=== PATIENT | male | born 1975 | race Caucasian/White ===

== ENCOUNTER 2019-01-03 23:50 | Emergency (ER) | payer SELFPAY ==
[~2019-01-03] VITALS: Ht 167.6 cm; Wt 120.0 kg
[2019-01-04 00:26] LABS: HEMATOCRIT 38.1 % (39.0-50.0); HEMOGLOBIN 12.5 g/dl (14.0-18.0); IMMATURE GRANULOCYTES 1.7 % (0.0-5.0); MEAN CELL VOLUME 90.9 fL CALC (80.0-100.0); MEAN CORPUSCULAR HGB 29.8 pG CALC (26.0-32.0); MEAN CORPUSCULAR HGB CONC 32.8 g/L CALC (32.0-36.0); NEUT# 5.19 thou/uL (1.82-7.42); RED BLOOD COUNT 4.19 mill/uL (4.70-6.10); RED CELL DISTRI WIDTH 13.2 % (11.5-15.5)
[2019-01-04 00:47] LABS: ALBUMIN 3.8 g/dL (3.2-5.0); ALKALINE PHOSPHATASE 77 u/l (38-126); ANION GAP 10 (6-22 (CALC)); BILIRUBIN, TOTAL 0.4 mg/dL (0.0-1.4); BUN 21 mg/dL (9-20); BUN/CREATININE RATIO 18 (12-20 (CALC)); CARBON DIOXIDE 28 mmol/l (22-30); CHLORIDE 107 mmol/l (95-108); CREATININE 1.2 mg/dL (0.7-1.3); GFR > 60 ML/MIN (>=60 (CALC)); GFR FOR AFR.AMER. > 60 ML/MIN (>=60 (CALC)); POTASSIUM 3.8 mmol/l (3.5-5.1); SGOT/AST 58 u/l (17-59); SODIUM 141 mmol/l (137-146); TOTAL PROTEIN 6.8 g/dL (6.3-8.2)
[2019-01-04 01:00] LABS: MYOGLOBIN 75 ng/mL (0 - 121)
[2019-01-04] MEDS ORDERED: BENADRYL 50MG C50 MG PO (04:57)
[2019-01-04] MEDS ORDERED: PEPCID20 MG PO (05:21)
[2019-01-04] MEDS ORDERED: MEDDOSEPAK PO (05:21)
[2019-01-04 05:33] LABS: URINE BILIRUBIN - DIPSTICK NEGATIVE (NEGATIVE); URINE BLOOD DIPSTICK NEGATIVE (NEGATIVE); URINE COLOR YELLOW; URINE GLUCOSE - DIPSTICK NEGATIVE (NEGATIVE); URINE KETONE NEGATIVE (NEGATIVE); URINE LEUK ESTERASE NEGATIVE (NEGATIVE); URINE NITRITE - DIPSTICK NEGATIVE (Negative); URINE PROTEIN - DIPSTICK NEGATIVE (NEG-TRACE); URINE SPECIFIC GRAVITY >=1.030; URINE UROBILINOGEN - DIPSTICK 0.2 E.U./dL (0.2)
[2019-01-04] MEDS ORDERED: DOXYCYC MONO100 M2 PO (05:36)
[2019-01-04 05:56] VITALS: BP 146/72
== END 2019-01-04 06:04 | disposition home or self-care (01) | DRG 607 ==
LOC: ED 23:50
PROVIDERS: Emergency Medicine
DX: R21 Rash and other nonspecific skin eruption (principal); R07.9 Chest pain, unspecified